=== PATIENT | male | born 1960 | race Caucasian/White ===

== ENCOUNTER 2020-06-06 08:24 | Outpatient (REF) | payer MEDICAID, SELFPAY | END 2020-06-06 08:25 | disposition home or self-care (01) | LOC: HO.LAB 08:24 | PROVIDERS: PCP Internal Medicine Hematology & Oncology; Visit Provider Internal Medicine Endocrinology, Diabetes & Metabolism | DX: E27.40 Unspecified adrenocortical insufficiency (principal) | CPT/HCPCS: 36415; 82024; 82533 ==

== ENCOUNTER 2020-06-22 08:07 | Outpatient (REF) | payer MEDICAID, SELFPAY ==
[2020-06-27 22:57] LABS: Adrenocorticotropic Hormone 23 pg/mL (6-50)
== END 2020-06-22 08:08 | disposition home or self-care (01) ==
LOC: HO.LAB 08:07
PROVIDERS: Visit Provider Internal Medicine Endocrinology, Diabetes & Metabolism
DX: E27.40 Unspecified adrenocortical insufficiency (principal)
CPT/HCPCS: 36415; 82024

== ENCOUNTER 2021-11-07 16:34 | Emergency (ER) | payer MEDICAID, SELFPAY ==
--- NOTE | ~2021-11-07 | XR_ITS ---
EXAMINATION: XR CHEST CLINICAL INFORMATION: Chest pain status post fall. COMPARISON: Chest radiograph and chest CTA dated 06/12/2019. TECHNIQUE: Frontal view of the chest was obtained. FINDINGS: Mild elevation of left hemidiaphragm. The lungs appear clear. The heart and mediastinal structures are unremarkable. XR/XR chest 1V IMPRESSION: No acute cardiopulmonary process.
--- NOTE | ~2021-11-07 | CT_ITS ---
EXAMINATION: NONCONTRAST HEAD CT NONCONTRAST MAXILLOFACIAL CT INDICATION INFORMATION: Fall and head injury with periorbital ecchymosis. Rule out orbital fracture. COMPARISON: None TECHNIQUE: Separate noncontrast CT examinations of the head and maxillofacial bones were performed. Coronal and sagittal images were created for each examination at the technologist workstation. This CT examination was performed using dose optimization techniques as appropriate, variously including the following: *Automated exposure control *Adjustment of mA and/or kV according to patient size (this includes techniques or standardized protocols for targeted exams where dose is matched to indication/reason for exam; i.e. extremities or head) *Use of iterative reconstruction technique DLP: 1073 mGy-cm FINDINGS: HEAD: No intra or extra-axial fluid collection, hemorrhage, or mass. No midline shift or herniation. Basal cisterns are patent. Mosher-white matter differentiation is maintained. No territorial encephalomalacia.. No hydrocephalus. Proportional prominence of the ventricles and sulcal spaces is consistent with mild volume loss. Minimal nonspecific periventricular white matter hypoattenuation. Small right para midline frontal scalp hematoma. No calvarial fracture. The mastoid air cells are well aerated. MAXILLOFACIAL: Mildly impacted nasal bone fractures. No other facial bone fractures are identified. The frontal, maxillary, ethmoid, and sphenoid sinuses are well aerated. The mandibular heads are normally positioned in the glenoid fossa. The orbits demonstrate a normal appearance bilaterally. The globes are intact. No evidence of retrobulbar hemorrhage. Right submandibular gland is absent or completely fatty replaced. 0.5 cm calcification in its expected location. No cervical lymphadenopathy in the [id number]. Mass. Parapharyngeal fat is maintained. Normal appearance of the scada engineer space and parotid spaces. Extensive dental disease with multiple dental caries and periapical lucencies. Mild disc degenerative changes in the visualized upper cervical spine. CT/CT head/brain wo con IMPRESSION: 1. No intracranial hemorrhage, calvarial fracture, or other acute intracranial abnormality. 2. Small frontal scalp hematoma. 3. Mildly impacted nasal bone fracture. No other facial bone fractures.
--- NOTE | ~2021-11-07 | CT_ITS ---
EXAMINATION: NONCONTRAST HEAD CT NONCONTRAST MAXILLOFACIAL CT INDICATION INFORMATION: Fall and head injury with periorbital ecchymosis. Rule out orbital fracture. COMPARISON: None TECHNIQUE: Separate noncontrast CT examinations of the head and maxillofacial bones were performed. Coronal and sagittal images were created for each examination at the technologist workstation. This CT examination was performed using dose optimization techniques as appropriate, variously including the following: *Automated exposure control *Adjustment of mA and/or kV according to patient size (this includes techniques or standardized protocols for targeted exams where dose is matched to indication/reason for exam; i.e. extremities or head) *Use of iterative reconstruction technique DLP: 1073 mGy-cm FINDINGS: HEAD: No intra or extra-axial fluid collection, hemorrhage, or mass. No midline shift or herniation. Basal cisterns are patent. Mosher-white matter differentiation is maintained. No territorial encephalomalacia.. No hydrocephalus. Proportional prominence of the ventricles and sulcal spaces is consistent with mild volume loss. Minimal nonspecific periventricular white matter hypoattenuation. Small right para midline frontal scalp hematoma. No calvarial fracture. The mastoid air cells are well aerated. MAXILLOFACIAL: Mildly impacted nasal bone fractures. No other facial bone fractures are identified. The frontal, maxillary, ethmoid, and sphenoid sinuses are well aerated. The mandibular heads are normally positioned in the glenoid fossa. The orbits demonstrate a normal appearance bilaterally. The globes are intact. No evidence of retrobulbar hemorrhage. Right submandibular gland is absent or completely fatty replaced. 0.5 cm calcification in its expected location. No cervical lymphadenopathy in the [id number]. Mass. Parapharyngeal fat is maintained. Normal appearance of the master barber space and parotid spaces. Extensive dental disease with multiple dental caries and periapical lucencies. Mild disc degenerative changes in the visualized upper cervical spine. CT/CT facial bones wo con IMPRESSION: 1. No intracranial hemorrhage, calvarial fracture, or other acute intracranial abnormality. 2. Small frontal scalp hematoma. 3. Mildly impacted nasal bone fracture. No other facial bone fractures.
[2021-11-07 16:59] VITALS: BP 114/66; PULSE 77; RESP 18; TEMP 37; O2SAT 97; BMI 22.9
--- NOTE | 2021-11-07 17:09 | ECG_ITS ---
Test Reason : fall Blood Pressure : / mmHG Vent. Rate : 070 BPM Atrial Rate : 070 BPM P-R Int : 204 ms QRS Dur : 098 ms QT Int : 418 ms P-R-T Axes : -09 -33 060 degrees QTc Int : 451 ms Normal sinus rhythm Left axis deviation Abnormal ECG When compared with ECG of 12-JUN-2019 00:56, QRS duration has increased Criteria for Inferior infarct are no longer Present ST no longer depressed in Anterior leads Referred By: Generic ED Physician Electronically Signed By:Uche Mcgowan
[2021-11-07 17:27] LABS: MANUAL DIFF FLAG NO
[2021-11-07 17:28] LABS: Basophils Absolute Auto 0.1 X10*3/uL (0.0-0.2); Basophils Percent Auto 0.9 % (0-2); Eosinophils Absolute Auto 0.2 X10*3/uL (0.0-0.4); Eosinophils Percent Auto 2.3 % (0-4); Hematocrit 33.2 % (42.0-52.0); Hemoglobin 11.5 g/dl (14.0-18.0); Imm Gran Abs Auto 0.03 X10*3/uL (0.00-0.03); Imm Gran Pct Auto 0.5 % (0.0-0.4); Lymphocytes Absolute Auto 0.9 X10*3/uL (1.2-4.9); Lymphocytes Percent Auto 14.1 % (20-40); Mean Corpuscular HGB Conc 34.6 g/dl (31.0-36.0); Mean Corpuscular Hemoglobin 35.3 pg (27.0-33.0); Mean Corpuscular Volume 101.8 fL (80.0-98.0); Monocytes Absolute Auto 0.4 X10*3/uL (0.1-1.2); Monocytes Percent Auto 6.3 % (2-11); Neutrophils Absolute Auto 5.1 x10*3/uL (2.0-8.3); Neutrophils Percent Auto 75.9 % (45-73); Platelet Count 259 X10*3/uL (160-400); Red Blood Count 3.26 X10*6/uL (4.60-5.80); Red Cell Distribution Width 14.2 % (11.0-16.0); White Blood Count 6.7 X10*3/uL (4.8-10.8)
[2021-11-07 17:38] LABS: Ethanol 216 mg/dL
[2021-11-07 17:42] LABS: Alanine Aminotransferase 22 U/L (0-40); Albumin Level 4.1 g/dL (3.5-5.0); Alkaline Phosphatase 77 U/L (39-117); Anion Gap 14 (12-20); Aspartate Amino Transferase 35 U/L (5-37); Bilirubin Total 0.5 mg/dL (0.0-1.0); Blood Urea Nitrogen 6 mg/dL (9-16); Calcium 8.7 mg/dL (8.4-10.2); Carbon Dioxide 25 mmol/L (22-29); Chloride 94 mmol/L (96-108); Creatinine Clr Calc Pharmacy 72.8; Estimated Glomerular Filt Rate > 60; Glucose Random 106 mg/dL (60-115); Potassium 3.9 mmol/L (3.3-5.1); Sodium 129 mmol/L (135-145); Total Protein 7.2 g/dL (6.5-8.0)
[2021-11-07 17:48] LABS: Troponin-I High Sensitivity 7.3 ng/L (<3.5-35.0)
[2021-11-07 17:50] VITALS: BP 110/67; PULSE 63; RESP 18; TEMP 36.5; O2SAT 98
--- NOTE | 2021-11-07 18:04 | ED.FALL ---
HPI - Fall General Chief Complaint: Fall Stated Complaint: fell 11/06 hit head Time Seen by Provider: 11/07/21 18:01 Source: patient and family ( sister and a family's friend) Mode of arrival: ambulatory Limitations: no limitations History of Present Illness HPI Narrative: 61-year-old male came in for evaluation after closed head injury 2 days ago. This is a 61 y/o pleasant gentleman with history of TBI and short-term memory impairment patient attend a day program for TBI, patient however lives home alone mostly independent has a sister who is a healthcare proxy live few houses away from him, patient admitted to drinking alcohol on occasional basis but not daily, patient sustained a fall after he slipped on the wet floor hitting his forehead, patient clearly remember the incident declined any LOC, patient was brought to the emergency department after he had evolved hematoma around the eyes. Patient declined headache, or blurred vision or double vision. Patient also declined chest pain or palpitation or syncopal episodes. History of chronic hyponatremia. Related Data Allergies Allergy/AdvReac Type Severity Reaction Status Date / Time No Known Allergies Allergy Unverified 02/09/20 15:39 [No Known Allergies*] Review of Systems Review of Systems: All other systems are reviewed and are negative Constitutional: Reports as per HPI and Reports no additional constitutional complaints Eyes: Reports as per HPI and Reports no additional eye complaints Reports system reviewed and no additional complaints, except as documented Cardiovascular: Reports as per HPI and Reports no additional cardiovascular complaints Respiratory: Reports as per HPI and Reports no additional respiratory complaints Gastrointestinal: Reports as per HPI and Reports no additional gastrointestinal complaints Genitourinary: Reports no additional female genitourinary complaints Musculoskeletal: Reports no additional musculoskeletal complaints Skin/Breast: Reports system reviewed and no additional complaints, except as docu Psychiatric: Reports no additional psychiatric complaints Endocrine: Reports no additional endocrine complaints Hematologic/Lymphatic: Reports no additional hematologic/lymphatic complaints Allergic/Immunologic: Reports no additional allergic/immunologic complaints Reports system reviewed and no additional complaints, except as documented and Reports Abnormal speech present [facility] Social History Social History Alcohol intake: never Patient Tobacco Use Status: Never used Tobacco Use of substances other than those prescribed or required for medical reasons: No Advance Directives: Yes Advance Directives Information Provided: No Advance Directives on File: No Physical Exam Vital Signs: Vital Signs: Last Vital Signs Temp 97.7 F 11/07/21 17:50 Pulse 63 11/07/21 17:50 Resp 18 11/07/21 17:50 BP 110/67 11/07/21 17:50 Pulse Ox 98 11/07/21 17:50 O2 Del Method 11/07/21 17:50 BMI result Body Mass Index 22.9 vital signs have been reviewed as appeared to be correct. Blood pressure normal. Heart rate normal. Respiration rate normal. Temperature normal. Oxygen saturation normal. Appearance: Alert. Oriented X3. No acute distress. Head: Normal external exam. Normocephalic. Atraumatic. No Summers signs noted. No raccoon eyes noted Eyes: PERRLA. EOMI. Conjunctiva and sclera normal. Eyelids normal. Bilateral periorbital ecchymosis, no tenderness, no palpable step-off or deformity. ENT: TM's Normal. Pharynx normal. Uvula midline. Moist mucous membranes. No trismus noted. No drooling noted. No muffled voice noted. Neck: Normal inspection. Neck supple. FROM. No adenopathy. Thyroid Normal. No meningeal signs. No neck mass noted. CVS: Normal heart rate and rhythm. Heart sound normal. No murmurs noted. Pulses normal throughout. Respiratory: No respiratory distress. Painless inspiration. Breath sounds normal. No wheezes/rales/rhonchi noted. Chest nontender. No accessory muscle usage noted or decreased air movement noted. Abdomen: Soft and nontender. Bowel sounds normal in all 4 quadrants. No distention noted. No organomegaly noted. No visible injury noted. Back: No CVA tenderness. Full range of motion noted. Skin: Skin warm and dry. Normal skin color. Normal skin turgor. No rashes/lesions/lacerations noted. Extremities: No lower extremity edema. Extremities exhibit normal range of motion. Extremities nontender. Neuro: Oriented X 3. GCS of 15 Cranial nerve exam: II-XII are grossly intact No motor deficit. No sensory deficit. Reflexes normal. Course Course Course Narrative: 61 old male came in for evaluation of facial trauma. No concern of cardiac syncopal episodes. Radiographic Study is concern of impacted nasal fracture. Patient with chronic hyponatremia sodium was 129 as per patient he is taking salt tablet as the medication. MDM - Fall Medical Records Attestation: I reviewed the patient's medical records. Lab Data Attestation: I reviewed the patient's lab results. Result diagrams: 11/07/21 17:22 11/07/21 17:22 Labs: Lab Results 11/07/21 11/07/21 11/07/21 Range/Units 17:22 17:22 17:22 WBC 6.7 (4.8-10.8) X10*3/uL RBC 3.26 L (4.60-5.80) X10*6/uL Hgb 11.5 L (14.0-18.0) g/dl Hct 33.2 L (42.0-52.0) % MCV 101.8 H (80.0-98.0) fL MCH 35.3 H (27.0-33.0) pg MCHC 34.6 (31.0-36.0) g/dl RDW 14.2 (11.0-16.0) % Plt Count 259 (160-400) X10*3/uL MPV 9.0 L (9.4-12.4) fL Immature Gran % (Auto) 0.5 H (0.0-0.4) % Neut % (Auto) 75.9 H (45-73) % Lymph % (Auto) 14.1 L (20-40) % [place] % (Auto) 6.3 (2-11) % Eos % (Auto) 2.3 (0-4) % Baso % (Auto) 0.9 (0-2) % Lymph # (Auto) 0.9 L (1.2-4.9) X10*3/uL [place] # (Auto) 0.4 (0.1-1.2) X10*3/uL Eos # (Auto) 0.2 (0.0-0.4) X10*3/uL Baso # (Auto) 0.1 (0.0-0.2) X10*3/uL Abs Immat Gran (auto) 0.03 (0.00-0.03) X10*3/uL Absolute Neuts (auto) 5.1 (2.0-8.3) x10*3/uL Absolute Nucleated RBC 0.000 (0.0-0.012) X10*3/uL Nucleated RBC % (auto) 0.0 (0.0-0.2) /100WBC Sodium 129 L (135-145) mmol/L Potassium 3.9 (3.3-5.1) mmol/L Chloride 94 L (96-108) mmol/L Carbon Dioxide 25 (22-29) mmol/L Anion Gap 14 (12-20) BUN 6 L (9-16) mg/dL Creatinine 1.03 (0.5-1.4) mg/dL Estim Creat Clear Calc 72.8 Estimated GFR > 60 Random Glucose 106 (60-115) mg/dL Calcium 8.7 (8.4-10.2) mg/dL Total Bilirubin 0.5 (0.0-1.0) mg/dL AST 35 (5-37) U/L ALT 22 (0-40) U/L Alkaline Phosphatase 77 (39-117) U/L Total Creatine Kinase 129 (38-174) U/L Troponin I High Sens 7.3 (<3.5-35.0) ng/L Total Protein 7.2 (6.5-8.0) g/dL Albumin 4.1 (3.5-5.0) g/dL Ethyl Alcohol mg/dL 11/07/21 Range/Units 17:22 WBC (4.8-10.8) X10*3/uL RBC (4.60-5.80) X10*6/uL Hgb (14.0-18.0) g/dl Hct (42.0-52.0) % MCV (80.0-98.0) fL MCH (27.0-33.0) pg MCHC (31.0-36.0) g/dl RDW (11.0-16.0) % Plt Count (160-400) X10*3/uL MPV (9.4-12.4) fL Immature Gran % (Auto) (0.0-0.4) % Neut % (Auto) (45-73) % Lymph % (Auto) (20-40) % [place] % (Auto) (2-11) % Eos % (Auto) (0-4) % Baso % (Auto) (0-2) % Lymph # (Auto) (1.2-4.9) X10*3/uL [place] # (Auto) (0.1-1.2) X10*3/uL Eos # (Auto) (0.0-0.4) X10*3/uL Baso # (Auto) (0.0-0.2) X10*3/uL Abs Immat Gran (auto) (0.00-0.03) X10*3/uL Absolute Neuts (auto) (2.0-8.3) x10*3/uL Absolute Nucleated RBC (0.0-0.012) X10*3/uL Nucleated RBC % (auto) (0.0-0.2) /100WBC Sodium (135-145) mmol/L Potassium (3.3-5.1) mmol/L Chloride (96-108) mmol/L Carbon Dioxide (22-29) mmol/L Anion Gap (12-20) BUN (9-16) mg/dL Creatinine (0.5-1.4) mg/dL Estim Creat Clear Calc Estimated GFR Random Glucose (60-115) mg/dL Calcium (8.4-10.2) mg/dL Total Bilirubin (0.0-1.0) mg/dL AST (5-37) U/L ALT (0-40) U/L Alkaline Phosphatase (39-117) U/L Total Creatine Kinase (38-174) U/L Troponin I High Sens (<3.5-35.0) ng/L Total Protein (6.5-8.0) g/dL Albumin (3.5-5.0) g/dL Ethyl Alcohol 216 mg/dL Imaging Data Chest x-ray: Attestation: I personally reviewed and interpreted this imaging study as follows: Radiologist's impression: no acute cardiopulmonary process. Head CT: Attestation: I personally reviewed and interpreted this imaging study as follows: Radiologist's impression: 1. No intracranial hemorrhage, calvarial fracture, or other acute intracranial abnormality. 2. Small frontal scalp hematoma. 3. Mildly impacted nasal bone fracture. No other facial bone fractures. facial CT: Attestation: I personally reviewed and interpreted this imaging study as follows: Radiologist's impression: Mildly impacted nasal bone fracture. No other facial bone fractures. ECG Data Attestation: I personally reviewed and interpreted this ECG as follows: Interpretation: normal sinus rhythm at 70 beats per minute, left axis deviation, no ST-T changes. Discharge Plan Discharge Clinical Impression: Closed fracture nose, Chronic hyponatremia Patient Disposition: Home, Self-Care Instructions: Hyponatremia (ED), Nasal Fracture (ED) Referrals: Diego Gayle [Physician] -
== END 2021-11-07 19:28 | disposition home or self-care (01) ==
PROVIDERS: Emergency Provider Emergency Medicine; PCP Internal Medicine Hematology & Oncology
DX: S02.2XXA Fracture of nasal bones, initial encounter for closed fracture (principal); S00.12XA Contusion of left eyelid and periocular area, initial encounter; S00.11XA Contusion of right eyelid and periocular area, initial encounter; W01.198A Fall on same level from slipping, tripping and stumbling with subsequent striking against other object, initial encounter; E87.1 Hypo-osmolality and hyponatremia; Z87.820 Personal history of traumatic brain injury; Y93.9 Activity, unspecified; Y92.019 Unspecified place in single-family (private) house as the place of occurrence of the external cause; Y99.9 Unspecified external cause status
CPT/HCPCS: 36415; 70450; 70486; 71045; 80053; 82077; 82550; 84484; 85025; 93005; 99284

== ENCOUNTER 2022-03-20 12:59 | Emergency (ER) | payer MEDICARE, MEDICAID, SELFPAY ==
[2022-03-20] VITALS (7 sets, daily range): BP systolic 100–129; BP diastolic 54–86; PULSE 50–62; RESP 16–18; TEMP 36.6; O2SAT 96–99; BMI 22.9
--- NOTE | ~2022-03-20 | CT_ITS ---
EXAMINATION: CT CERVICAL SPINE WITHOUT CONTRAST CLINICAL INFORMATION: Neck pain status post fall. COMPARISON: 06/12/[address] scan. TECHNIQUE: Multiple axial images of the cervical spine were obtained without administration of intravenous contrast. Coronal and sagittal reformatted images were obtained This CT examination was performed using dose optimization techniques as appropriate, variously including the following: *Automated exposure control *Adjustment of mA and/or kV according to patient size (this includes techniques or standardized protocols for targeted exams where dose is matched to indication/reason for exam; i.e. extremities or head) *Use of iterative reconstruction technique DLP: 368.68 mGy-cm FINDINGS: There is straightening of the normal cervical lordosis. Mild to moderate degenerative disc disease is seen from C4-C5 to C6-C7 without significant change. Prominent osteophyte formation is seen at C6-C7 and C7-T1 without significant change. Mild grade 1 anterolisthesis is seen at C5-C6 and C6-C7. Mild bilateral neural foraminal narrowing is seen at C6-C7. Mild multilevel bilateral facet arthropathy. The odontoid and spinous processes are intact. Diffuse osseous sclerosis in the cervical spine is seen. Soft tissues are unremarkable. There is no lymphadenopathy. The thyroid gland is unremarkable. Mild biapical paraseptal emphysema is noted. CT/CT cervical spine wo IV con IMPRESSION: 1. Straightening of the normal cervical lordosis may be secondary to positioning and/or muscle spasm. 2. Multilevel degenerative changes without significant interval change. No acute abnormality. 3. Diffuse sclerosis is similar to the previous study suggestive of metastatic disease or other systemic disease.
--- NOTE | ~2022-03-20 | CT_ITS ---
EXAMINATION: CT HEAD AND FACIAL BONES WITHOUT CONTRAST CLINICAL INFORMATION: Head and facial pain status post fall. COMPARISON: CT head and facial bones dated 11/07/2021. TECHNIQUE: Multiple axial images of the head and facial bones were obtained without the administration of intravenous contrast. Coronal and sagittal reformatted images were obtained. This CT examination was performed using dose optimization techniques as appropriate, variously including the following: *Automated exposure control *Adjustment of mA and/or kV according to patient size (this includes techniques or standardized protocols for targeted exams where dose is matched to indication/reason for exam; i.e. extremities or head) *Use of iterative reconstruction technique DLP: 752.23, 357.88 mGy-cm FINDINGS: Head: There is mild widening of the cortical sulci and associated ventriculomegaly. The lateral ventricles are symmetrical. The third and fourth ventricles are in their normal midline position. The basilar and prepontine cisterns are unremarkable. There is no acute intra or extracerebral abnormality. There is no mass effect or midline shift. Sections through the bony calvarium are unremarkable. Facial bones: Interval improvement in right frontal subcutaneous hematoma. The frontal bones are intact. An old fracture of the left lateral orbital wall (image 82, series 6) is unchanged. The bony orbits and orbital contents are otherwise unremarkable. Anterior nasal bone deformity with deviation to the left is not significantly changed. The paranasal sinuses again show opacification of a posterior right ethmoid air cell without significant change. Minimal mucosal thickening in the maxillary sinuses bilaterally. No air-fluid levels. The maxilla and pterygoid plates are intact. The mandible and temporomandibular joints are intact. The soft tissues are unremarkable. CT/CT facial bones wo IV con IMPRESSION: 1. No acute intracranial abnormality. 2. Old bone fractures without significant change. No definitive acute fracture.
--- NOTE | 2022-03-20 13:15 | ED_ITS ---
HPI - General Adult General Chief complaint: General Medical Stated complaint: ETOH, FALL Time Seen by Provider: 03/20/22 13:03 Source: patient and EMS Limitations: no limitations History of Present Illness HPI narrative: Was a 62-year-old male with history of TBI, multiple myeloma who presents with a fall. Patient tells me that he slipped and fell on the hardwood floor striking his face. No loss of consciousness. Called family who will then called EMS to come evaluate him. Patient denies any pre fall symptoms of dizziness, weakness, palpitations, chest pain although tells me he does have occasional dizziness. He does not feel like this happen before the fall today. Since the fall he reports some discomfort over his nose but no other symptoms. He is not on any blood thinning medication. Tetanus status is unknown Related Data Allergies Allergy/AdvReac Type Severity Reaction Status Date / Time No Known Allergies Allergy Unverified 02/09/20 15:39 [No Known Allergies*] Review of Systems Review of Systems: Yes all other systems are reviewed and are negative Constitutional: Constitutional: Reports no additional constitutional complaints, Denies body ache(s), Denies chills, Denies fever(s), Denies headache(s) and Denies weakness Eyes: Eyes: Reports no additional eye complaints and Denies change in vision ENT: Reports system reviewed and no additional complaints, except as documented, Denies dizziness, Denies headache(s), Denies nasal congestion, Denies nasal discharge and Denies neck pain Cardiovascular: Cardiovascular: Reports no additional cardiovascular complaints, Denies chest pain, Denies leg edema and Denies dyspnea Respiratory: Respiratory: Reports no additional respiratory complaints, Denies cough and Denies dyspnea Gastrointestinal: Gastrointestinal: Reports no additional gastrointestinal complaints, Denies abdominal pain, Denies diarrhea, Denies nausea and Denies vomiting Genitourinary: Genitourinary: Denies urinary incontinence Musculoskeletal: Musculoskeletal: Reports no additional musculoskeletal complaints, Denies back pain, Denies arthralgias, Denies joint swelling, Denies neck pain, Denies numbness and Denies tingling Integumentary/Breasts: Skin/Breast: Reports system reviewed and no additional complaints, except as docu and Denies rash Neurologic: Reports system reviewed and no additional complaints, except as documented, Denies dizziness, Denies headache(s), Denies numbness, Denies tingling and Denies weakness PMFSH Past Medical History Attestation statement: The following information was validated with the patient. Source: old records reviewed and nursing notes reviewed Social History Social History Alcohol intake: never Patient Tobacco Use Status: Former Tobacco user Smoked in Last 30 Days: No Use of substances other than those prescribed or required for medical reasons: No Advance Directives: No Physical Exam ED Vital Signs: Vital Signs - 24 hr 03/20/22 13:12 03/20/22 14:42 03/20/22 15:47 Temperature 98 F Pulse Rate 62 55 56 Respiratory Rate 18 18 16 Blood Pressure 125/86 100/54 L 129/83 Pulse Oximetry 98 97 97 Oxygen Delivery Method Room Air Room Air Room Air 03/20/22 16:34 03/20/22 16:48 03/20/22 17:13 Temperature Pulse Rate 53 50 52 Respiratory Rate 16 16 18 Blood Pressure 105/70 107/72 100/66 Pulse Oximetry 99 98 97 Oxygen Delivery Method Room Air Room Air Room Air BMI result Body Mass Index 22.9 Const Other: Cervical Collar in place General: cooperative, healthy appearing, comfortable and no acute distress Orientation/consciousness: patient oriented x3 Limitations: no limitations HENMT Head: Yes normal to inspection, No Summers's sign and No raccoon eyes Ears: hearing grossly normal bilaterally and TM's normal bilaterally General nose exam: Other nasal findings present (no septal hematoma ) Nose image: 1. 4cm laceration Face and sinus: Yes normal facial exam Mouth: Normal oral and palatal mucosa present Teeth and gingiva: dentition normal Throat: Yes posterior oropharynx normal, Yes tonsils normal and Yes uvula midline Eyes General: appearance normal, both eyes and all related structures Pupils: Equal, round and reactive pupils present Neck Other: Unable to assess range of motion due to cervical collar in place Neck: Yes normal visual inspection Chest Chest palpation & inspection: normal inspection of the chest Resp Effort & Inspection: normal respiratory effort Auscultation: clear to auscultation bilaterally Cardio Rate: regular rate Rhythm: regular rhythm Peripheral pulses: Peripheral pulses 2+ throughout GI Inspection: Yes normal to inspection Palpation (GI): Soft to palpation and nontender General: Yes no CVA tenderness Back/Spine/Pelvis Back: no CVA tenderness Thoracic/Lumbar Spine: thoracic and lumbar spine normal to inspection Skin General skin exam: no rashes or lesions noted Neuro General: patient oriented x3, moves all extremities and Unable to assess gait Cranial nerves: Yes CN's II-XII intact bilaterally, Yes Equal, round and reactive pupils present, Yes Bilaterally intact EOM present, Yes Nystagmus not present, Yes Normal facial strength present and Yes Midline tongue present Cognition (Neuro): normal cognition Gait exam (Neuro): Unable to assess gait Motor exam (neuro): 5/5 motor strength present throughout Sensory Exam: Normal double simultaneous stimulation for sensation Extrem General: Yes normal to inspection, Yes no pedal edema and Yes no calf tenderness Course Course Course Narrative: CT head, facial bones show no acute finding. CT cervical spine shows metastatic lesions likely secondary to patient's underlying multiple myeloma. Patient required 4 mg of Versed for anxiety prior to procedure. Patient tolerated well. Per sister the patient has a history of multiple myeloma followed by EMS some oral. He is currently on a oral chemotherapy medication which he takes for 21 days and then is off for 7 days. He has a history of TBI with short-term memory loss. He also drinks alcohol daily with frequent falls. He is currently living alone. His sister is his healthcare proxy. His sister is worried that he may not be safe to be at home and may need short-term rehab placement. At this time unable to assess patient's capacity as he is intoxicated. He will need to be re-evaluated when he is sober to determine if he has capacity to make his own decisions. Patient placed in physician observation pending disposition. He will be placed on prophylactic antibiotics for his laceration as it is quite complex and deep. Procedures Laceration Laceration 1: Site: face Size (cm): 4 Description: linear Depth: simple, single layer Local Anesthetic: lidocaine 1% Amount of anesthesia used (mL): 4 Pre-repair: wound explored and irrigated extensively Skin layer closed with: vicryl Size (cm): 6-0 Number of sutures: 7 Technique: simple, interrupted Medical Decision Making [facility] Narrative Medical decision making narrative: It is not completely clear but this is a 62-year-old male who has what sounds like a slip and fall today hitting his face with a laceration to the nose. Patient has had some dizziness which is on off but does not believe it was dizziness which caused his fall today. There was concern that the patient may also have had some alcohol to drink. But he denies this to me. He does have a pretty significant laceration over the nasal bridge of will require repair. Normal neuro exam Vitals are stable Due to age and facial trauma will check CT head, CT facial bones and CT cervical spine. At is is not completely clear about what happened will check EKG, labs Medical Records Medical records reviewed: Yes I reviewed the patient's medical records. Lab Data Lab results reviewed: Yes I reviewed the patient's lab results. Result diagrams: 03/20/22 13:34 03/20/22 13:34 Labs: Lab Results 03/20/22 03/20/22 03/20/22 Range/Units 13:34 13:34 13:34 WBC 4.1 L (4.8-10.8) X10*3/uL RBC 2.90 L (4.60-5.80) X10*6/uL Hgb 10.4 L (14.0-18.0) g/dl Hct 29.9 L (42.0-52.0) % MCV 103.1 H (80.0-98.0) fL MCH 35.9 H (27.0-33.0) pg MCHC 34.8 (31.0-36.0) g/dl RDW 14.4 (11.0-16.0) % Plt Count 199 (160-400) X10*3/uL MPV 9.3 L (9.4-12.4) fL Immature Gran % (Auto) 0.2 (0.0-0.4) % Neut % (Auto) 52.1 (45-73) % Lymph % (Auto) 28.5 (20-40) % Ocean % (Auto) 15.5 H (2-11) % Eos % (Auto) 2.7 (0-4) % Baso % (Auto) 1.0 (0-2) % Lymph # (Auto) 1.2 (1.2-4.9) X10*3/uL Ocean # (Auto) 0.6 (0.1-1.2) X10*3/uL Eos # (Auto) 0.1 (0.0-0.4) X10*3/uL Baso # (Auto) 0.0 (0.0-0.2) X10*3/uL Abs Immat Gran (auto) 0.01 (0.00-0.03) X10*3/uL Absolute Neuts (auto) 2.2 (2.0-8.3) x10*3/uL Absolute Nucleated RBC 0.000 (0.0-0.012) X10*3/uL Nucleated RBC % (auto) 0.0 (0.0-0.2) /100WBC Sodium 137 (135-145) mmol/L Potassium 4.0 (3.3-5.1) mmol/L Chloride 104 (96-108) mmol/L Carbon Dioxide 20 L (22-29) mmol/L Anion Gap 17 (12-20) BUN 6 L (9-16) mg/dL Creatinine 0.64 (0.5-1.4) mg/dL Estim Creat Clear Calc 122.8 Estimated GFR > 60 Random Glucose 87 (60-115) mg/dL Calcium 8.1 L D (8.4-10.2) mg/dL Total Bilirubin 0.2 (0.0-1.0) mg/dL Direct Bilirubin 0.2 (0.0-0.5) mg/dL AST 24 (5-37) U/L ALT 12 (0-40) U/L Alkaline Phosphatase 51 D (39-117) U/L Troponin I High Sens 5.7 (<3.5-35.0) ng/L Total Protein 6.1 L (6.5-8.0) g/dL Albumin 3.4 L (3.5-5.0) g/dL Ethyl Alcohol 301 H* mg/dL COVID-19 ([facility]) (Negative) COVID-19 Clin Com 03/20/22 Range/Units 16:41 WBC (4.8-10.8) X10*3/uL RBC (4.60-5.80) X10*6/uL Hgb (14.0-18.0) g/dl Hct (42.0-52.0) % MCV (80.0-98.0) fL MCH (27.0-33.0) pg MCHC (31.0-36.0) g/dl RDW (11.0-16.0) % Plt Count (160-400) X10*3/uL MPV (9.4-12.4) fL Immature Gran % (Auto) (0.0-0.4) % Neut % (Auto) (45-73) % Lymph % (Auto) (20-40) % Ocean % (Auto) (2-11) % Eos % (Auto) (0-4) % Baso % (Auto) (0-2) % Lymph # (Auto) (1.2-4.9) X10*3/uL Ocean # (Auto) (0.1-1.2) X10*3/uL Eos # (Auto) (0.0-0.4) X10*3/uL Baso # (Auto) (0.0-0.2) X10*3/uL Abs Immat Gran (auto) (0.00-0.03) X10*3/uL Absolute Neuts (auto) (2.0-8.3) x10*3/uL Absolute Nucleated RBC (0.0-0.012) X10*3/uL Nucleated RBC % (auto) (0.0-0.2) /100WBC Sodium (135-145) mmol/L Potassium (3.3-5.1) mmol/L Chloride (96-108) mmol/L Carbon Dioxide (22-29) mmol/L Anion Gap (12-20) BUN (9-16) mg/dL Creatinine (0.5-1.4) mg/dL Estim Creat Clear Calc Estimated GFR Random Glucose (60-115) mg/dL Calcium (8.4-10.2) mg/dL Total Bilirubin (0.0-1.0) mg/dL Direct Bilirubin (0.0-0.5) mg/dL AST (5-37) U/L ALT (0-40) U/L Alkaline Phosphatase (39-117) U/L Troponin I High Sens (<3.5-35.0) ng/L Total Protein (6.5-8.0) g/dL Albumin (3.5-5.0) g/dL Ethyl Alcohol mg/dL COVID-19 ([facility]) Negative (Negative) COVID-19 Clin Com See Note Imaging Data CT scan - head: Attestation: I personally reviewed and interpreted this imaging study as follows: Radiologist's impression: Head: There is mild widening of the cortical sulci and associated ventriculomegaly. The lateral ventricles are symmetrical. The third and fourth ventricles are in their normal midline position. The basilar and prepontine cisterns are unremarkable. There is no acute intra or extracerebral abnormality. There is no mass effect or midline shift. Sections through the bony calvarium are unremarkable. ct facial bones: Attestation: I personally reviewed and interpreted this imaging study as follows: Radiologist's impression: Facial bones: Interval improvement in right frontal subcutaneous hematoma. The frontal bones are intact. An old fracture of the left lateral orbital wall (image 82, series 6) is unchanged. The bony orbits and orbital contents are otherwise unremarkable. Anterior nasal bone deformity with deviation to the left is not significantly changed. The paranasal sinuses again show opacification of a posterior right ethmoid air cell without significant change. Minimal mucosal thickening in the maxillary sinuses bilaterally. No air-fluid levels. The maxilla and pterygoid plates are intact. The mandible and temporomandibular joints are intact. The soft tissues are unremarkable. ct cervical spine: Attestation: I personally reviewed and interpreted this imaging study as follows: Radiologist's impression: [address] [address] [address] Scan Report Signed Patient: Ernst Mclean MR#: [id number] : 1960 Acct:[id number] Age/Sex: 62 / M ADM Date: 03/20/22 Loc: .ED Attending Dr: Ordering Physician: Eduarda Lopez NP Date of Service: 03/20/22 Procedure(s): CT cervical spine wo IV con Accession Number(s): [id number] cc: Eduarda Lopez NP~ EXAMINATION: CT CERVICAL SPINE WITHOUT CONTRAST CLINICAL INFORMATION: Neck pain status post fall.? COMPARISON: 06/12/[address] scan.? TECHNIQUE: Multiple axial images of the cervical spine were obtained without administration of intravenous contrast. Coronal and sagittal reformatted images were obtained This CT examination was performed using dose optimization techniques as appropriate, variously including the following: *Automated exposure control *Adjustment of mA and/or kV according to patient size (this includes techniques or standardized protocols for targeted exams where dose is matched to indication/reason for exam; i.e. extremities or head) *Use of iterative reconstruction technique DLP: 368.68 mGy-cm FINDINGS: There is straightening of the normal cervical lordosis. Mild to moderate degenerative disc disease is seen from C4-C5 to C6-C7 without significant change. Prominent osteophyte formation is seen at C6-C7 and C7-T1 without significant change. Mild grade 1 anterolisthesis is seen at C5-C6 and C6-C7. Mild bilateral neural foraminal narrowing is seen at C6-C7. Mild multilevel bilateral facet arthropathy. The odontoid and spinous processes are intact. Diffuse osseous sclerosis in the cervical spine is seen. Soft tissues are unremarkable. There is no lymphadenopathy. The thyroid gland is unremarkable. Mild biapical paraseptal emphysema is noted. CT/CT cervical spine wo IV con IMPRESSION: 1.? Straightening of the normal cervical lordosis may be secondary to positioning and/or muscle spasm. 2.? Multilevel degenerative changes without significant interval change. No acute abnormality. 3.? Diffuse sclerosis is similar to the previous study suggestive of metastatic disease or other systemic disease. ECG Data Attestation: I personally reviewed and interpreted this ECG as follows: Interpretation: Sinus bradycardia with a rate of 55, normal OH, normal QRS, or QT Discharge Plan Discharge Clinical Impression: Complex laceration of face, Alcohol intoxication Patient Disposition: Still a Patient
--- NOTE | 2022-03-20 13:16 | ECG_ITS ---
Test Reason : fall Blood Pressure : / mmHG Vent. Rate : 055 BPM Atrial Rate : 055 BPM P-R Int : 200 ms QRS Dur : 104 ms QT Int : 486 ms P-R-T Axes : -20 -38 017 degrees QTc Int : 464 ms Sinus bradycardia with 1st degree A-V block Left anterior fascicular block Abnormal ECG When compared with ECG of 07-NOV-2021 17:09, No significant change was found Referred By: Eduarda Lopez Electronically Signed By:SHYANNE SKINNER MD
[2022-03-20 13:37] LABS: MANUAL DIFF FLAG NO
[2022-03-20 13:39] LABS: Eosinophils Absolute Auto 0.1 X10*3/uL (0.0-0.4); Eosinophils Percent Auto 2.7 % (0-4); Hematocrit 29.9 % (42.0-52.0); Hemoglobin 10.4 g/dl (14.0-18.0); Imm Gran Abs Auto 0.01 X10*3/uL (0.00-0.03); Imm Gran Pct Auto 0.2 % (0.0-0.4); Lymphocytes Absolute Auto 1.2 X10*3/uL (1.2-4.9); Lymphocytes Percent Auto 28.5 % (20-40); Mean Corpuscular HGB Conc 34.8 g/dl (31.0-36.0); Mean Corpuscular Hemoglobin 35.9 pg (27.0-33.0); Mean Corpuscular Volume 103.1 fL (80.0-98.0); Mean Platelet Volume 9.3 fL (9.4-12.4); Monocytes Absolute Auto 0.6 X10*3/uL (0.1-1.2); Monocytes Percent Auto 15.5 % (2-11); Neutrophils Absolute Auto 2.2 x10*3/uL (2.0-8.3); Neutrophils Percent Auto 52.1 % (45-73); Platelet Count 199 X10*3/uL (160-400); Red Cell Distribution Width 14.4 % (11.0-16.0); White Blood Count 4.1 X10*3/uL (4.8-10.8)
[2022-03-20 13:59] LABS: Troponin-I High Sensitivity 5.7 ng/L (<3.5-35.0)
[2022-03-20 14:08] LABS: Alanine Aminotransferase 12 U/L (0-40); Albumin Level 3.4 g/dL (3.5-5.0); Alkaline Phosphatase 51 U/L (39-117); Anion Gap 17 (12-20); Aspartate Amino Transferase 24 U/L (5-37); Bilirubin Direct 0.2 mg/dL (0.0-0.5); Bilirubin Total 0.2 mg/dL (0.0-1.0); Blood Urea Nitrogen 6 mg/dL (9-16); Calcium 8.1 mg/dL (8.4-10.2); Carbon Dioxide 20 mmol/L (22-29); Chloride 104 mmol/L (96-108); Creatinine Clr Calc Pharmacy 122.8; Estimated Glomerular Filt Rate > 60; Ethanol 301 mg/dL; Glucose Random 87 mg/dL (60-115); Sodium 137 mmol/L (135-145); Total Protein 6.1 g/dL (6.5-8.0)
[2022-03-20] MEDS: Diphth,Pertus(ACell),Tet Adult 0.5 ML SYRINGE IM (14:49)
--- NOTE | 2022-03-20 14:59 | PC.NURSE ---
pt A&O x3. fell this morning at home, he says he slipped on hardwood floors and fell. No witnesses. Sister at the bedside, she believes he was drinking and may have hit the bed post. She reports pt has had multiple falls in the past 4 months and concussion in the past. Pt has a large cut on his nose, currently not bleeding. Adm Tdap per P order. Sister would like to speak to case management d/t pt not being able to care for himself
[2022-03-20] MEDS: Midazolam HCl/PF 2 MG/2 ML VIAL IVPUSH ×2 (15:44→16:31)
--- NOTE | 2022-03-20 16:33 | PC.NURSE ---
Pt agitated with collar in place, Versed given with + effect. At this time Eduarda BADILLO at bedside in prep for suture to nose, additional Versed 2mg IVP given.
[2022-03-20 17:01] LABS: COVID-19 Test Negative (Negative); IDNOW Serial# 55D5AD1C
--- NOTE | 2022-03-20 18:20 | PC.NURSE ---
Sister Valorie expressing concerns with pt returning home and states pt needs SNF/rehab placement. Case management to bedside, discussed with family that pt will stay until tomorrow to further assess capacity (as pt ETOH level to elevated at this time) and determine if pt agreeable to rehab placement.
--- NOTE | 2022-03-20 19:40 | PHA.MEDREC ---
MED REC COMPLETE, NO ISSUES Pharmacy Consult ? Medication Reconciliation Pharmacy has completed the medication reconciliation.
--- NOTE | 2022-03-20 21:30 | MHC.CM.ED ---
CM met with patient at request of nurse and patient's sister. Pt is intoxicated and unable to interact meaningfully. CM spoke with sister/HCP Valorie Friedman ([phone]). Sister is concerned that pt cannot care for himself, as he has fallen multiple times, has TBI from ETOH abuse and continues to drink alcohol. Pt lives in their parents home. [employer] x3. Valorie tells CM both her parents in the past year. Siblings have been trying to care for brother. HCP is not invoked. Unable to assess pt capacity due to intoxication. Pt uses no DME. [facility] in [place] 2 days a week. It is a day program for people with TBI's. Valorie has an intake appointment with [facility] on 04/08. Valorie wants pt to go to [facility] and is concerned he may need to be placed in LTC. Pt has Medicare/Medicaid. Pt does not have a PCP and hasn't seen in dentist in 15+ years. Has a new patient appointment with [facility] [place] in the [facility]. Pt sees Dr. Coombs in oncology in [place] for his multiple myeloma. PT is pending. CM will assess capacity and complete CM assessment when pt is sober in the morning. If capacity is in question, Valorie is aware that CM will speak with provider regarding psych consult for capacity and invoking HCP, as sister is very concerned that patient cannot safely go home. Care Port of local [facility] and contact card given to sister. Eduarda BARON aware of above conversation. CM to follow for discharge planning.
[2022-03-20] MEDS: cephALEXin 500 MG CAPSULE PO (21:48)
[2022-03-21] VITALS (7 sets, daily range): BP systolic 98–119; BP diastolic 56–73; PULSE 69–89; RESP 15–20; TEMP 36.6–36.8; O2SAT 94–98
[2022-03-21] MEDS: LORazepam 1 MG TABLET 2 MG PO (05:42)
[2022-03-21] MEDS: cephALEXin 500 MG CAPSULE PO (08:03)
--- NOTE | 2022-03-21 10:01 | MHC.CM.ED ---
Pt presents to ED from home after fall requiring sutures. Pt also noted to have + ETOH level and strong hx of usage. Pt's sister is very concerned about his ability to safely remain at home. Pt has a TBI and attends a TBI day program in [place]. HCP not activated at this time. ED CM met with pt who was pleasant and engaging but not aware of what brought him to [facility] and denied intoxication on arrival. I don't drink Discussed pt's potential needs w/provider: Pt is scoring a 6 on his CIWA protocol: no plans to admit for ETOH detox. Pt will need a formal psych eval for capacity and potential activation of HCP. MD to order. PT eval is also pending. ED CM to follow for possible placement: will need PT eval and psych eval/HCP activation.
[2022-03-21] MEDS: Folic Acid 1 MG TABLET PO (11:03)
[2022-03-21] MEDS: Aspirin Enteric Coated 81 MG TABLET.DR 162 MG PO (11:03)
[2022-03-21] MEDS: Potassium Chloride ER 20 MEQ TAB.ER.PRT PO (11:04)
[2022-03-21] MEDS: Omeprazole 20 MG CAPSULE.DR PO (11:04)
--- NOTE | 2022-03-21 16:07 | P.CNPS_ITS ---
History of Present Illness Date of Service: 03/21/2022 Chief Complaint: ETOH, FALL Reason for Consult: capacity Requesting physician: Liana Eduardo Discussed with referring provider: Yes Sources of Information: patient interviewed, chart reviewed and crisis/core team assessment reviewed HPI Narrative: Mr. Mclean is a 62 year-old male with hx of alcohol use disorder who came to [facility] after fall. In the ED, pt had BAL 301. Head CT and face CT did not show new fractures. He did require sutures. Head CT did not show any acute pathology but does show atrophy and microvascular changes. CBC with diff show macrocytic anemia, leukopenia. Psych asked to do capacity assessment. On the unit, pt is awake. Pt able to fairly accurately tell that he felt and came to hospital. He understands that he did not sustain a fracture and has sutures. He reports pain is moderate. He shows understanding related to current medical treatment. When asked about blood alcohol levels, pt denies using any alcohol use. He denies alcohol is a problem, despite evidence of previous ED visits for falls in context of being intoxicated. Medical Evaluation Reviewed: Yes Diagnostics Vital Signs (24Hr): Vital Signs - 24 hr 03/20/22 16:34 03/20/22 16:48 03/20/22 17:13 Temperature Pulse Rate 53 50 52 Respiratory Rate 16 16 18 Blood Pressure 105/70 107/72 100/66 Pulse Oximetry 99 98 97 Oxygen Delivery Method Room Air Room Air Room Air 03/21/22 02:12 03/21/22 05:31 03/21/22 07:34 Temperature 97.9 F 98.3 F 98.2 F Pulse Rate 76 89 82 Respiratory Rate 18 20 18 Blood Pressure 98/59 L 104/56 L 115/71 Pulse Oximetry 96 94 98 Oxygen Delivery Method Room Air Room Air Room Air 03/21/22 08:03 03/21/22 09:57 03/21/22 10:37 Temperature 98.1 F Pulse Rate 81 81 76 Respiratory Rate 20 19 Blood Pressure 119/72 Pulse Oximetry 97 Oxygen Delivery Method Room Air 03/21/22 15:15 Temperature 98.2 F Pulse Rate 69 Respiratory Rate 15 Blood Pressure 118/73 Pulse Oximetry 96 Oxygen Delivery Method Room Air BMI result Body Mass Index 22.9 Labs Results: 03/20/22 13:34 03/20/22 13:34 Labs: Laboratory Results - last 48 hr 03/20/22 03/20/22 03/20/22 13:34 13:34 13:34 WBC 4.1 L RBC 2.90 L Hgb 10.4 L Hct 29.9 L MCV 103.1 H MCH 35.9 H MCHC 34.8 RDW 14.4 Plt Count 199 MPV 9.3 L Immature Gran % (Auto) 0.2 Neut % (Auto) 52.1 Lymph % (Auto) 28.5 Davie % (Auto) 15.5 H Eos % (Auto) 2.7 Baso % (Auto) 1.0 Lymph # (Auto) 1.2 Davie # (Auto) 0.6 Eos # (Auto) 0.1 Baso # (Auto) 0.0 Abs Immat Gran (auto) 0.01 Absolute Neuts (auto) 2.2 Absolute Nucleated RBC 0.000 Nucleated RBC % (auto) 0.0 Sodium 137 Potassium 4.0 Chloride 104 Carbon Dioxide 20 L Anion Gap 17 BUN 6 L Creatinine 0.64 Estim Creat Clear Calc 122.8 Estimated GFR > 60 Random Glucose 87 Calcium 8.1 L D Total Bilirubin 0.2 Direct Bilirubin 0.2 AST 24 ALT 12 Alkaline Phosphatase 51 D Troponin I High Sens 5.7 Total Protein 6.1 L Albumin 3.4 L Ethyl Alcohol 301 H* COVID-19 ([facility]) COVID-19 Clin Com 03/20/22 16:41 WBC RBC Hgb Hct MCV MCH MCHC RDW Plt Count MPV Immature Gran % (Auto) Neut % (Auto) Lymph % (Auto) Davie % (Auto) Eos % (Auto) Baso % (Auto) Lymph # (Auto) Davie # (Auto) Eos # (Auto) Baso # (Auto) Abs Immat Gran (auto) Absolute Neuts (auto) Absolute Nucleated RBC Nucleated RBC % (auto) Sodium Potassium Chloride Carbon Dioxide Anion Gap BUN Creatinine Estim Creat Clear Calc Estimated GFR Random Glucose Calcium Total Bilirubin Direct Bilirubin AST ALT Alkaline Phosphatase Troponin I High Sens Total Protein Albumin Ethyl Alcohol COVID-19 ([facility]) Negative COVID-19 Clin Com See Note Imaging Radiology Impressions: ITS Impressions Cervical Spine CT 03/20/22 14:13 IMPRESSION: 1. Straightening of the normal cervical lordosis may be secondary to positioning and/or muscle spasm. 2. Multilevel degenerative changes without significant interval change. No acute abnormality. 3. Diffuse sclerosis is similar to the previous study suggestive of metastatic disease or other systemic disease. Face CT 03/20/22 14:13 IMPRESSION: 1. No acute intracranial abnormality. 2. Old bone fractures without significant change. No definitive acute fracture. Head CT 03/20/22 14:13 IMPRESSION: 1. No acute intracranial abnormality. 2. Old bone fractures without significant change. No definitive acute fracture. Mental Status Exam Mental Status Exam Narrative: Appearance: casually groomed, fair hygiene in NAD Behavior:cooperative psychomotor: no agitation or retardation noted Speech: clear, normal rate/rhythm/volume, spontaneous Thought process: linear Thought content:no s/s of psychosis, wanting to leave soon, denial of alcohol use. Mood: good Affect: congruent SI:none HI:none VH/AH:none Delusions:none Insight/judgment:poor x 2 when it comes to alcohol use and its effects. Memory/cog: alert, oriented x 3. not formal testing, but grossly intact to conversational testing. NOte that head CT does show some egree of atrophy and microvascular changes which could have impact on his overall cognition. Medications Medications Current Medications Aspirin (Aspirin Enteric Coated 81 Mg Tablet.) 162 mg PO DAILY [facility] Last Admin: 03/21/22 11:03 Dose: 162 mg Cephalexin HCl (Cephalexin 500 Mg Capsule) 500 mg PO BID [facility] Stop: 03/27/22 09:01 Last Admin: 03/21/22 08:03 Dose: 500 mg Folic Acid (Folic Acid 1 Mg Tablet) 1 mg PO DAILY [facility] Last Admin: 03/21/22 11:03 Dose: 1 mg Lorazepam (Lorazepam 1 Mg Tablet) 2 mg PO RQ4H WHILE AWAKE PRN PRN Reason: Alcohol Withdrawal Last Admin: 03/21/22 05:42 Dose: 2 mg Non-Formulary Medication (Lenalidomide [Revlimid]) 15 mg PO DAILY [facility] Last Admin: 03/21/22 11:10 Dose: Not Given Omeprazole (Omeprazole 20 Mg Capsule.) 20 mg PO DAILY [facility] Last Admin: 03/21/22 11:04 Dose: 20 mg Pharmacy Consult (Consult Rx Perform Med Rec) 1 each MISCELLANE ONCE PRN PRN Reason: Consult order Potassium Chloride (Potassium Chloride Er 20 Meq Tab.Er.Prt) 20 meq PO DAILY [facility] Last Admin: 03/21/22 11:04 Dose: 20 meq Sertraline HCl (Sertraline Hcl 100 Mg Tablet) 100 mg PO BEDTIME [facility] Sodium Chloride (Sodium Chloride Tab 1 Gm Tablet) 1 gm PO BID [facility] Last Admin: 03/21/22 13:23 Dose: Not Given Thiamine HCl (Thiamine Hcl 100 Mg Tablet) 100 mg PO DAILY [facility] Allergies Allergies Allergy/AdvReac Type Severity Reaction Status Date / Time No Known Allergies Allergy Unverified 02/09/20 15:39 [No Known Allergies*] Assessment & Plan Assessment & Plan (1) Alcohol use disorder, moderate, dependence: Status: Acute Code(s): F10.20 - Alcohol dependence, uncomplicated Plan Mr. Mclean is a 62 year-old male with hx of alcohol use disorder brought via EMS after he sustained a fall in context of being intoxicated with alcohol. Pt able to recall with fairly good accuracy events leading to this ED visit re: felt, understands that this time he did not sustain a fracture and only required sutures. Pt DOES HAVE capacity to make medical decisions as he is able to show understanding of medical condition (laceration), treatment during this ED visit. He does not have insight into his alcohol use and effects on his health (frequent falls, macrocytic anemia most likely s/s to b12 deficiency). PLAN 1. Pt has capacity to make medical decision. No evidence of cognitive or other psychiatric symptoms affecting his ability to understands his own medical conditions, appreciate risk versus benefits. 2. If family wants to pursue a section 35- for involuntary alcohol use treatment given that his addiction has gotten to a point where he has lost control and his health is comprised. Please offer this option to his family. 3. At this point pt declines any referrals to substance use treatment options. I spent __20____ minutes with the patient and/or on the patient floor today, greater than?50% of which was spent counseling/coordinating care.
[2022-03-21] MEDS: Thiamine HCL 100 MG TABLET PO (16:49)
--- NOTE | 2022-03-21 17:13 | MHC.CM.ED ---
Addendum entered by Rosalee Shay 03/21/22 18:40: Pt sister, Shea has not picked up patient yet. Attempted to call and left message with Shea. Called pt sister/HCP Valorie regarding transport home. Per Valorie, her sister was supposed to get some clothes for pt and then come to hospital. Valorie will call her sister regarding transportation. Valorie tells CM that she has all of the necessary forms for Section 35, will complete and present to court on Thursday in [place]. CM will follow for d/c needs. Original Note: Per psych assessment, pt DOES have the capacity to make medical decisions. PT is recommending STR. CM spent 15 minutes speaking with patient and trying to convince patient that he should go to [facility] for PT, including the fact that both PT and his sister/HCP Valorie want him to go. Pt adamantly refuses STR and requested several times during our conversation that he wanted to go home. CM spoke with Liana BADILLO, who feels patient can be discharged home, has only received 1 prn dose of Ativan and suggests that family Section 35 him. Madina BARON also suggests that family Section 35 him. CM spoke with Valorie at length, as well as Kandice BARON regarding pt having capacity to make decisions, even if they are detrimental to him. Pt is addicted to alcohol. Valroie states that he brother has been like this since he was 17 years old. He has been in and out of numerous ETOH/detox programs and has had mulitple DUI's, with loss of license. Valorie is understandably upset and crying with stress of brothers alcoholism and trying to get him help. Reviewed process of Section 35. Valorie has already been on line and has paperwork. Will call [employer] [address] Thursday morning. 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 Ashish FERRER, Liana BADILLO and patient are aware.
== END 2022-03-21 19:35 | disposition home or self-care (01) ==
PROVIDERS: Nurse Practitioner Family; Emergency Provider Emergency Medicine
DX: S01.81XA Laceration without foreign body of other part of head, initial encounter (principal); S10.91XA Abrasion of unspecified part of neck, initial encounter; F10.129 Alcohol abuse with intoxication, unspecified; Y90.8 Blood alcohol level of 240 mg/100 ml or more; M54.2 Cervicalgia; R51.9 Headache, unspecified; R42 Dizziness and giddiness; R26.81 Unsteadiness on feet; W01.10XA Fall on same level from slipping, tripping and stumbling with subsequent striking against unspecified object, initial encounter; Y93.9 Activity, unspecified; Y92.9 Unspecified place or not applicable; Y99.9 Unspecified external cause status; Z20.822 Contact with and (suspected) exposure to COVID-19; Z79.899 Other long term (current) drug therapy
CPT/HCPCS: 12013; 36415; 70450; 70486; 72125; 80048; 80076; 82077; 84484; 85025; 87635; 90471; 90715; 93005; 96374; 96376; 97162; 99285; J2250